=== PATIENT | female | born 1980 | race Caucasian/White ===

== ENCOUNTER → 2021-11-05 09:36 | Outpatient (CLI) | payer BC, SELFPAY ==
--- NOTE | ~2021-11-05 | US_ITS ---
EXAMINATION: US pelvic complete w TV DATE: 11/05/2021 11:33 INDICATION: Pelvic pain history of PCOS, IUD placement. TECHNIQUE: Multiple transabdominal and endovaginal sonographic images of the pelvis were obtained. COMPARISON: None. FINDINGS: Uterus: 7.8 x 4.2 x 5.3 cm. Retroverted uterus. IUD, in good position. Endometrial complex measures 0 .4 cm. Right Ovary: 3.0 x 2.7 x 3.0 cm. Vascular flow is present. Left Ovary: 3.7 x 2.6 x 2.9 cm. Vascular flow is present. 2.5 x 2.2 x 2.3 cm simple cyst. There is no free fluid in the pelvis. IMPRESSION: 1. IUD in good position. Otherwise normal pelvic ultrasound findings. Reviewed, dictated and finalized at location K.
--- NOTE | ~2021-11-05 | US_ITS ---
EXAMINATION: US right upper quadrant DATE: 11/05/2021 09:59 INDICATION: Nonalcoholic steatohepatitis. Abnormal liver function tests. TECHNIQUE: Multiple grayscale and Doppler ultrasound images of the abdomen were obtained. COMPARISON: None FINDINGS: The visualized portion of the body of the pancreas is normal. There is diffuse hepatic stea tosis. No liver surface nodularity. There is normal flow in main portal vein. The gallbladder is norm al in size. No gallstones or gallbladder wall thickening. There was no sonographic Barber sign. The c ommon duct is normal and measures 3 mm. IMPRESSION: 1. Diffuse hepatic steatosis. Reviewed, dictated and finalized at location A.
== END ==
PROVIDERS: PCP Physician Assistant; Visit Provider Physician Assistant
DX: K75.81 Nonalcoholic steatohepatitis (NASH) (principal); R10.2 Pelvic and perineal pain; Z97.5 Presence of (intrauterine) contraceptive device
CPT/HCPCS: 76705; 76830; 76856

== ENCOUNTER 2025-03-30 00:42 | Day surgery (SDC) | payer OTHER, SELFPAY ==
[2025-03-20 08:28] VITALS: BMI 26.6
[2025-03-30 07:46] VITALS: BP 123/93; PULSE 76; RESP 18; TEMP 36.1; O2SAT 100
[2025-03-30] MEDS: LACTATED RINGERS 1,000 ML 150 ML IV CONT (08:08)
--- NOTE | 2025-03-30 08:10 | P.PNAN_ITS ---
Anes - Initial Pre Proc Eval Procedure: Operation Date: 03/30/25 09:00 Proposed Procedures p Diagnostic Colonoscopy - Pepito Singh MD Date/Time: 03/30/25 08:10 Surgeon: Pepito Singh MD Pre Op Diagnosis: Other fecal abnormalities Patient Data Age: 45 Gender: F Height: 1.63 m Weight: 70.5 kg Last Vital Signs Temp 97 F L 03/30/25 07:46 Pulse 76 03/30/25 07:46 Resp 18 03/30/25 07:46 BP 123/93 H 03/30/25 07:46 Pulse Ox 100 03/30/25 07:46 O2 Del Method Room Air 03/30/25 07:46 Allergies Allergy/AdvReac Type Severity Reaction Status Date / Time No Known Allergies Allergy Verified 03/30/25 07:45 Home Medications ?Medication ?Instructions ?Recorded ?Confirmed ?Type sodium sul 1.479 gram-potas ch See Rx Instructions PO PER PKG DIR 01/04/25 03/20/25 Rx 0.188 gram-magnes sul 0.225 gram #24 tabs tablet (Sutab) levothyroxine 50 mcg tablet 50 mcg PO DAILY 03/20/25 0 03/20/25 History (Unithroid) metformin 500 mg tablet,extended 1,500 mg PO QPM 03/2003/20/25 History release 24 hr oxybutynin chloride 15 mg 15 mg PO DAILY 03/20/2502/25 History tablet,extended release 24 hr phentermine 15 mg capsule 15 mg PO DAILY 03/20/2502/25 History spironolactone 100 mg tablet 100 mg PO Q12H 03/20/25 0 03/20/25 History Laboratory Tests 03/30/25 07:58 POC Capillary Glucose 78 mg/dl (65-105) Patient hx anesthesia problems: none Family hx anesthesia problems: none Results Review: All pre-operative results and documents have been reviewed as part of the pre- operative evaluation. [facility] Social History Social History Smoking packs per day: 1 Smoking cigarettes per day: 20.0 Years smoked: 15 Smoking pack-years: 15.00 Smoking status: Former smoker Tobacco type: cigarettes Alcohol intake: never Substance use: never Substance use type: does not use Living arrangements: with family Spiritual care concerns: No Anes - Eval Final PreProcedure Day of Procedure 03/30/25 08:10 Patient weight: normal Heart: regular rate and rhythm Lungs: clear to auscultation Airway: Mallampati scale class II Neurological: alert and oriented Last oral intake: >/= 8 hours ASA classification: III Emergent: no Anesthetic plan: proceed Anesthesia type and monitoring: general GIVS and standard monitoring Results Review: All pre-operative results and documents have been reviewed as part of the pre- operative evaluation. Informed Consent: The patient's anesthetic plan and its attendant risks and benefits were discussed with the patient/family/POA. Questions were solicited and answers provided to the satisfaction of the patient/family/POA.
[2025-03-30 08:14] LABS: BEDSIDEPREGUCG Negative (Negative)
--- NOTE | 2025-03-30 08:42 | PM.HPGS ---
History of Present Illness History of Present Illness Consent: Risks, benefits, and alternatives have been discussed and questions answered. Patient agrees to proceed with procedure. Chief complaint: Other fecal abnormalities Narrative: Jessica Willis is a 45 year old female here for first colonoscopy, + cologuard Review of Systems Review of Systems: All systems reviewed & are unremarkable except as noted in HPI and below PMFSH Past Medical History Medical History (Updated 03/30/25 @ 08:42 by Pepito Singh MD) Positive colorectal cancer screening using Cologuard test Social History Social History Smoking packs per day: 1 Smoking cigarettes per day: 20.0 Years smoked: 15 Smoking pack-years: 15.00 Smoking status: Former smoker Tobacco type: cigarettes Alcohol intake: never Substance use: never Substance use type: does not use Living arrangements: with family Spiritual care concerns: No Meds Home Medications and Allergies Home Medications ?Medication ?Instructions ?Recorded ?Confirmed ?Type sodium sul 1.479 gram-potas ch See Rx Instructions PO PER PKG DIR 01/04/25 03/20/25 Rx 0.188 gram-magnes sul 0.225 gram #24 tabs tablet (Sutab) levothyroxine 50 mcg tablet 50 mcg PO DAILY 03/20/25 03/20/25 History (Unithroid) metformin 500 mg tablet,extended 1,500 mg PO QPM 03/20/25 03/20/25 History release 24 hr oxybutynin chloride 15 mg 15 mg PO DAILY 03/20/25 03/20/25 History tablet,extended release 24 hr phentermine 15 mg capsule 15 mg PO DAILY 03/20/25 03/20/25 History spironolactone 100 mg tablet 100 mg PO Q12H 03/20/25 03/20/25 History Allergies Allergy/AdvReac Type Severity Reaction Status Date / Time No Known Allergies Allergy Verified 03/30/25 07:45 Vital Signs Vital Signs - 24 hr 03/30/25 07:46 Temperature 97 F L Pulse Rate 76 Respiratory Rate 18 Blood Pressure 123/93 H Pulse Oximetry 100 Oxygen Delivery Room Air Exam Const: General: comfortable and no acute distress HENMT: Face/Nose/Sinus: Normal nares present Eyes: General: appearance normal, both eyes and all related structures Neck: Neck: no JVD Resp: Auscultation: clear to auscultation bilaterally Cardio: Rate: regular rate Rhythm: regular rhythm GI: Inspection: non-distended GI Palp: Yes Soft to palpation Skin: General skin exam: normal color Neuro: General: gait normal Speech: normal speech Extrem: General: normal to inspection Psych: Mental Status: mental status grossly normal Assessment and Plan Assessment and plan (1) Positive colorectal cancer screening using Cologuard test: Code(s): R19.5 - Other fecal abnormalities Status: Acute Assessment and Plan: colonoscopy
[2025-03-30 09:04] VITALS: BP 92/58; PULSE 74; RESP 21; O2SAT 100
[2025-03-30 09:14] VITALS: BP 96/53; PULSE 70; RESP 13; O2SAT 100
[2025-03-30 09:24] VITALS: BP 116/74; PULSE 80; RESP 22; O2SAT 100
== END 2025-03-30 09:38 | disposition home or self-care (01) ==
PROVIDERS: PCP Physician Assistant; Visit Provider Internal Medicine Gastroenterology
PROC: 0DJD8ZZ Inspection of Lower Intestinal Tract, Via Natural or Artificial Opening Endoscopic (ICD-10-PCS; CPT 45378; principal; 2025-03-30 09:00)
DX: R19.5 Other fecal abnormalities (principal); K64.8 Other hemorrhoids; Z87.891 Personal history of nicotine dependence; Z79.84 Long term (current) use of oral hypoglycemic drugs
CPT/HCPCS: 45378; 82948; J2003; J2704; J7120